=== PATIENT | female | born 1945 | race Two or more races ===

== ENCOUNTER 2017-09-13 09:46 | Inpatient (IN) | payer MEDICARE ==
[~2017-09-13] VITALS: Ht 154.9 cm; Wt 57.3 kg
[2017-09-13] MEDS ORDERED: morphine SULFATE 10 MG/ML, 1ML ONE (09:55)
[2017-09-13] MEDS ORDERED: ONDANSETRON 2MG/ML, 2ML ONE (09:56)
[2017-09-13] MEDS ORDERED: ASPIRIN 325 MG TABLET PO STA (09:58)
[2017-09-13 10:18] LABS: HEMATOCRIT 39.1 % (34.6-47.8); HEMOGLOBIN 13.1 g/dL (11.7-16.4); WHITE BLOOD COUNT 8.4 x10^3/uL (3.4-10)
[2017-09-13] MEDS ORDERED: VERAPAMIL 2.5 MG/ML, 2ML ONE (10:21)
[2017-09-13] MEDS ORDERED: FENTANYL PF 100 MCG/2ML ONE (10:21)
[2017-09-13] MEDS ORDERED: TICAGRELOR 90 MG TABLET ONE (10:21)
[2017-09-13] MEDS ORDERED: MIDAZOLAM 1 MG/ML, 5ML ONE (10:21)
[2017-09-13] MEDS ORDERED: HEPARIN 1,000 UNITS/ML, 10ML ONE (10:22)
[2017-09-13] MEDS ORDERED: LIDOCAINE 2%, 20ML ONE (10:22)
[2017-09-13] MEDS ORDERED: BIVALIRUDIN 250 MG ONE (10:22)
[2017-09-13] MEDS ORDERED: NITROGLYCERIN 5 MG/ML, 10ML ONE (10:22)
[2017-09-13] MEDS ORDERED: ONDANSETRON 2MG/ML, 2ML IVPush ONE (10:30)
[2017-09-13] MEDS ORDERED: MORPHINE SULFATE 4 MG/ML, 1ML IVPush ONE (10:30)
[2017-09-13] MEDS ORDERED: ASPIRIN 81 MG TABLET CHEW PO ONE (10:30)
[2017-09-13] MEDS ORDERED: ASPIRIN 81 MG TABLET CHEW ONE (10:35)
[2017-09-13] MEDS ORDERED: ADENOSINE 6 MG/2 ML ONE (10:57)
[2017-09-13] MEDS ORDERED: EPTIFIBATIDE 20 MG/10 ML ONE (10:57)
[2017-09-13 11:59] LABS: BLOOD UREA NITROGEN 15 mg/dL (7-18)
[2017-09-13] MEDS: EPTIFIBATIDE 100 ML IV SCH (12:23)
[2017-09-13] MEDS ORDERED: ONDANSETRON 2MG/ML, 2ML IVPush PRN ×2 (12:30→18:00)
[2017-09-13] MEDS ORDERED: ZOLPIDEM 5MG TABLET PO PRN (12:30)
[2017-09-13] MEDS ORDERED: ACETAMINOPHEN 325 MG TABLET PO PRN ×2 (12:30→19:30)
[2017-09-13 13:41] LABS: IS PT STATUS REG ER OR PRE ER? NO
[2017-09-13] MEDS: SODIUM CHLORIDE 0.9% 1,000 ML IV SCH ×2 (13:42→18:03)
[2017-09-13] MEDS ORDERED: DOPAMINE/D5W PMX 250 ML ONE (15:08)
[2017-09-13] MEDS ORDERED: ATROPINE SYRINGE 0.1 MG/ML, 10ML IVPush ONE (15:30)
[2017-09-13] MEDS ORDERED: DOPAMINE/D5W PMX 250 ML IV PRN (15:30)
[2017-09-13] MEDS ORDERED: SODIUM CHLORIDE 0.9%, 500ML IVBOLUS ONE (15:30)
[2017-09-13] MEDS ORDERED: TICAGRELOR 90 MG TABLET PO ONE (17:00)
[2017-09-13 20:14] LABS: IS PT STATUS REG ER OR PRE ER? NO
[2017-09-13] MEDS: TICAGRELOR 90 MG TABLET PO SCH (20:46)
[2017-09-13 22:08] VITALS: BP 124/53
[2017-09-14] MEDS: EPTIFIBATIDE 100 ML IV SCH (00:08)
[2017-09-14] MEDS: SODIUM CHLORIDE 0.9% 1,000 ML IV SCH ×2 (01:54→15:58)
[2017-09-14 04:03] VITALS: BP 142/63
[2017-09-14 04:44] LABS: HEMATOCRIT 36.9 % (34.6-47.8); HEMOGLOBIN 12.2 g/dL (11.7-16.4)
[2017-09-14 04:50] LABS: BLOOD UREA NITROGEN 16 mg/dL (7-18)
[2017-09-14] MEDS: DOPAMINE/D5W PMX 250 ML IV PRN (07:08)
[2017-09-14] MEDS: TICAGRELOR 90 MG TABLET PO SCH ×2 (08:56→19:58)
[2017-09-14] MEDS ORDERED: LIDOCAINE 2%, 20ML ONE (08:57)
[2017-09-14] MEDS ORDERED: FENTANYL PF 100 MCG/2ML ONE (09:21)
[2017-09-14] MEDS ORDERED: MIDAZOLAM 1 MG/ML, 5ML ONE (09:21)
[2017-09-14] MEDS ORDERED: LOSA100T6 PO (18:56)
[2017-09-14] MEDS ORDERED: HYDR25TA11 PO (18:56)
[2017-09-14] MEDS ORDERED: ROSU20TA PO (18:56)
[2017-09-14] MEDS ORDERED: CLOT15CR6 TP (18:56)
[2017-09-14] MEDS ORDERED: FURO20TA3 PO (18:56)
[2017-09-14] MEDS ORDERED: ALLO100T30 PO (18:56)
[2017-09-14] MEDS: ATORVASTATIN 80 MG TABLET PO SCH (19:59)
[2017-09-14] MEDS: ZOLPIDEM 5MG TABLET PO PRN (21:43)
[2017-09-14] MEDS ORDERED: ALBUTEROL/IPRATROPIUM 2.5MG/0.5MG, 3 ML ONE (23:54)
[2017-09-15] MEDS ORDERED: ALBUTEROL/IPRATROPIUM 2.5MG/0.5MG, 3 ML NPPB PRN
[2017-09-15] MEDS: SODIUM CHLORIDE 0.9% 1,000 ML IV SCH ×2 (00:06→05:33)
[2017-09-15 04:27] LABS: HEMATOCRIT 35.2 % (34.6-47.8); HEMOGLOBIN 11.6 g/dL (11.7-16.4); WHITE BLOOD COUNT 13.4 x10^3/uL (3.4-10)
[2017-09-15 04:30] VITALS: BP 164/60
[2017-09-15 04:32] LABS: BLOOD UREA NITROGEN 24 mg/dL (7-18)
[2017-09-15 04:36] LABS: ASPARTATE AMINO TRANSFERASE 260 U/L (15-37)
[2017-09-15] MEDS ORDERED: hydrALAzine 20 MG/ML, 1ML IV STA (05:19)
[2017-09-15] MEDS ORDERED: hydrALAzine 20 MG/ML, 1ML ONE (05:24)
[2017-09-15] MEDS: ASPIRIN 81 MG TABLET EC PO SCH (05:32)
[2017-09-15] MEDS: TICAGRELOR 90 MG TABLET PO SCH ×2 (10:41→20:25)
[2017-09-15] MEDS ORDERED: FUROSEMIDE 20 MG/2 ML IV ONE (19:00)
[2017-09-15] MEDS: ATORVASTATIN 80 MG TABLET PO SCH (20:25)
[2017-09-16 04:00] VITALS: BP 159/84
[2017-09-16] MEDS: ASPIRIN 81 MG TABLET EC PO SCH (05:54)
[2017-09-16] MEDS ORDERED: FUROSEMIDE 20 MG/2 ML ONE (09:23)
[2017-09-16] MEDS: TICAGRELOR 90 MG TABLET PO SCH ×2 (09:25→20:27)
[2017-09-16 09:26] LABS: HEMATOCRIT 34.9 % (34.6-47.8); HEMOGLOBIN 11.6 g/dL (11.7-16.4); WHITE BLOOD COUNT 13.7 x10^3/uL (3.4-10)
[2017-09-16] MEDS ORDERED: FUROSEMIDE 20 MG/2 ML IV ONE ×2 (09:30)
[2017-09-16 10:01] LABS: BLOOD UREA NITROGEN 22 mg/dL (7-18)
[2017-09-16] MEDS: ALBUTEROL/IPRATROPIUM 2.5MG/0.5MG, 3 ML NPPB SCH ×3 (10:25→19:50)
[2017-09-16 12:40] LABS: OCCBLD OBC PASS
[2017-09-16] MEDS: ATORVASTATIN 80 MG TABLET PO SCH (20:27)
[2017-09-16] MEDS: ZOLPIDEM 5MG TABLET PO PRN (20:27)
[2017-09-17] MEDS: DOPAMINE/D5W PMX 250 ML IV PRN (02:43)
[2017-09-17] MEDS ORDERED: DOPAMINE/D5W PMX 250 ML IV PRN (03:00)
[2017-09-17 04:00] VITALS: BP 159/78
[2017-09-17 04:34] LABS: HEMATOCRIT 33.6 % (34.6-47.8); HEMOGLOBIN 11.1 g/dL (11.7-16.4); WHITE BLOOD COUNT 12.3 x10^3/uL (3.4-10)
[2017-09-17 04:41] LABS: ASPARTATE AMINO TRANSFERASE 72 U/L (15-37); BLOOD UREA NITROGEN 19 mg/dL (7-18)
[2017-09-17] MEDS: ASPIRIN 81 MG TABLET EC PO SCH (06:18)
[2017-09-17] MEDS: ALBUTEROL/IPRATROPIUM 2.5MG/0.5MG, 3 ML NPPB SCH ×4 (07:25→21:14)
[2017-09-17] MEDS ORDERED: POTASSIUM CHLORIDE 40 MEQ in SODIUM CHLORIDE 0.9% 500 ML IV ONE (08:30)
[2017-09-17] MEDS ORDERED: MAGNESIUM SULFATE PMX 2GM/50ML 50 ML IV ONE (08:30)
[2017-09-17] MEDS ORDERED: POTASSIUM CHLORIDE 20 MEQ TAB.ER.PRT PO ONE (08:30)
[2017-09-17] MEDS ORDERED: MIDAZOLAM 1 MG/ML, 5ML ONE (10:20)
[2017-09-17] MEDS ORDERED: VANCOMYCIN 500 MG ONE (10:20)
[2017-09-17] MEDS ORDERED: FENTANYL PF 100 MCG/2ML ONE (10:20)
[2017-09-17] MEDS ORDERED: LIDOCAINE 2%, 20ML ONE (10:21)
[2017-09-17] MEDS ORDERED: VANCOMYCIN PMX 1GM/200ML 200 ML ONE (10:21)
[2017-09-17] MEDS: PRASUGREL 10 MG TABLET PO SCH (13:43)
[2017-09-17] MEDS: ATORVASTATIN 80 MG TABLET PO SCH (19:53)
[2017-09-17] MEDS: SODIUM CHLORIDE FLUSH 10ML SYR IVF SCH (19:54)
[2017-09-17] MEDS ORDERED: VANCOMYCIN PMX 1GM/200ML 200 ML IVPB ONE (22:30)
[2017-09-18 05:12] VITALS: BP 130/50
[2017-09-18] MEDS: ASPIRIN 81 MG TABLET EC PO SCH (06:35)
[2017-09-18] MEDS: ALBUTEROL/IPRATROPIUM 2.5MG/0.5MG, 3 ML NPPB SCH (07:00)
[2017-09-18] MEDS: SODIUM CHLORIDE FLUSH 10ML SYR IVF SCH ×2 (08:50→21:05)
[2017-09-18] MEDS: PRASUGREL 10 MG TABLET PO SCH (08:50)
[2017-09-18 10:28] LABS: BLOOD UREA NITROGEN 16 mg/dL (7-18)
[2017-09-18 10:36] LABS: HEMATOCRIT 30.1 % (34.6-47.8); HEMOGLOBIN 10.1 g/dL (11.7-16.4); WHITE BLOOD COUNT 8.8 x10^3/uL (3.4-10)
[2017-09-18] MEDS ORDERED: POTASSIUM CHLORIDE 10% 40 MEQ/30 ML UDC PO SCH ×2 (11:30→21:00)
[2017-09-18] MEDS ORDERED: POTASSIUM CHLORIDE 20 MEQ TAB.ER.PRT PO SCH (21:00)
[2017-09-18] MEDS: ATORVASTATIN 80 MG TABLET PO SCH (21:05)
[2017-09-19 04:03] VITALS: BP 145/75
[2017-09-19 04:13] LABS: HEMOGLOBIN 9.3 g/dL (11.7-16.4); WHITE BLOOD COUNT 9.6 x10^3/uL (3.4-10)
[2017-09-19 04:24] LABS: BLOOD UREA NITROGEN 14 mg/dL (7-18)
[2017-09-19] MEDS: ASPIRIN 81 MG TABLET EC PO SCH (06:27)
[2017-09-19] MEDS: PRASUGREL 10 MG TABLET PO SCH (08:23)
[2017-09-19] MEDS: SODIUM CHLORIDE FLUSH 10ML SYR IVF SCH ×2 (09:00→20:46)
[2017-09-19 15:01] VITALS: BP 157/67
[2017-09-19 19:14] VITALS: BP 170/87
[2017-09-19] MEDS: LOSARTAN 50MG TABLET PO SCH (20:46)
[2017-09-19] MEDS: ATORVASTATIN 80 MG TABLET PO SCH (20:46)
[2017-09-20 00:59] VITALS: BP 151/74
[2017-09-20 01:00] VITALS: BP 151/74
[2017-09-20 07:27] VITALS: BP 167/55
[2017-09-20] MEDS: LOSARTAN 50MG TABLET PO SCH (08:23)
[2017-09-20] MEDS: SODIUM CHLORIDE FLUSH 10ML SYR IVF SCH (08:23)
[2017-09-20] MEDS: ASPIRIN 81 MG TABLET EC PO SCH (08:23)
[2017-09-20] MEDS: PRASUGREL 10 MG TABLET PO SCH (08:23)
[2017-09-20] MEDS ORDERED: METOPROLOL TARTRATE 25 MG TABLET PO SCH (09:30)
[2017-09-20] MEDS ORDERED: METO25TA35 PO (09:38)
[2017-09-20] MEDS ORDERED: ASPI-621 PO (09:38)
[2017-09-20] MEDS ORDERED: NITR0.4T28 SL (09:38)
[2017-09-20] MEDS ORDERED: PRAS10TA4 PO (09:38)
[2017-09-27] MEDS ORDERED: POTA20TA14 PO (12:50)
[2017-09-27] MEDS ORDERED: FURO20TA3 PO (12:50)
== END 2017-09-20 13:51 | disposition home or self-care (01) | DRG 242 ==
LOC: ED 10:05 → EDIP 10:06 → ED 11:10 → CCU 11:59 → 5SO 09-19 13:20
PROVIDERS: ADMIT Internal Medicine Cardiovascular Disease; ATTEND Internal Medicine Cardiovascular Disease
PROC: 4A023N7 Measurement of Cardiac Sampling and Pressure, Left Heart, Percutaneous Approach (ICD-10-PCS; principal; 2017-09-13)
PROC: 027036Z Dilation of Coronary Artery, One Artery with Three Drug-eluting Intraluminal Devices, Percutaneous Approach (ICD-10-PCS; 2017-09-13)
PROC: B2111ZZ Fluoroscopy of Multiple Coronary Arteries using Low Osmolar Contrast (ICD-10-PCS; 2017-09-13)
PROC: B2151ZZ Fluoroscopy of Left Heart using Low Osmolar Contrast (ICD-10-PCS; 2017-09-13)
PROC: B41D1ZZ Fluoroscopy of Aorta and Bilateral Lower Extremity Arteries using Low Osmolar Contrast (ICD-10-PCS; 2017-09-13)
PROC: 02703DZ Dilation of Coronary Artery, One Artery with Intraluminal Device, Percutaneous Approach (ICD-10-PCS; 2017-09-13)
PROC: 5A1223Z Performance of Cardiac Pacing, Continuous (ICD-10-PCS; 2017-09-14)
PROC: 4A09XMZ Measurement of Respiratory Total Activity, External Approach (ICD-10-PCS; 2017-09-15)
PROC: 0JH606Z Insertion of Pacemaker, Dual Chamber into Chest Subcutaneous Tissue and Fascia, Open Approach (ICD-10-PCS; 2017-09-17)
PROC: 02PA3MZ Removal of Cardiac Lead from Heart, Percutaneous Approach (ICD-10-PCS; 2017-09-17)
PROC: 02H63JZ Insertion of Pacemaker Lead into Right Atrium, Percutaneous Approach (ICD-10-PCS; 2017-09-17)
PROC: 02HK3JZ Insertion of Pacemaker Lead into Right Ventricle, Percutaneous Approach (ICD-10-PCS; 2017-09-17)
DX: I21.19 ST elevation (STEMI) myocardial infarction involving other coronary artery of inferior wall (principal); R57.0 Cardiogenic shock; J96.00 Acute respiratory failure, unspecified whether with hypoxia or hypercapnia; E44.0 Moderate protein-calorie malnutrition; I11.0 Hypertensive heart disease with heart failure; I27.20 Pulmonary hypertension, unspecified; I48.91 Unspecified atrial fibrillation; D64.9 Anemia, unspecified; E78.5 Hyperlipidemia, unspecified; F17.210 Nicotine dependence, cigarettes, uncomplicated; F41.9 Anxiety disorder, unspecified; G47.33 Obstructive sleep apnea (adult) (pediatric); I25.10 Atherosclerotic heart disease of native coronary artery without angina pectoris; I34.0 Nonrheumatic mitral (valve) insufficiency; I73.9 Peripheral vascular disease, unspecified; Z79.82 Long term (current) use of aspirin; Z95.0 Presence of cardiac pacemaker
CPT/HCPCS: 33208; 33210; 36415; 71010; 80047; 80048; 80053; 80061; 82040; 82272; 83735; 83880; 84484; 85014; 85018; 85025; 85610; 85730; 87081; 92978; 93005; 93306; 93308; 93458; 94060; 94640; 94660; 99156; 99157; C1753; C1769; C1779; C1785; C1892; C1894; J0153; J0461; J0583; J1265; J1644; J2250; J2405; J3010; J3370; J3480; J3490; J7620; C1725; C1874; J0360; J1327; J1940; J3475; J7030; J7040; Q9967

== ENCOUNTER 2018-04-20 05:45 | Inpatient (IN) | payer MEDICARE ==
[~2018-04-20] VITALS: Ht 152.4 cm; Wt 54.1 kg
[~2018-04-20 05:45] MED LIST: ALLO100T30 PO; ASPI-621 PO; CLOT15CR6 TP; FURO20TA3 PO; HYDR25TA11 PO; LOSA100T6 PO; METO25TA35 PO; NITR0.4T28 SL; POTA20TA14 PO; PRAS10TA4 PO; ROSU20TA PO
[2018-04-20 06:44] LABS: MEAN CORPUSCULAR HEMOGLOBIN 31.7 pg (27.0-34.8); MEAN CORPUSCULAR HGB CONC 33.8 g/dL (32.4-35.8); MEAN PLATELET VOLUME 8.8 fL (7.4-10.4); PLATELET COUNT 140 x10^3/uL (130-400); RED BLOOD COUNT 2.09 x10^6/uL (3.82-5.3)
[2018-04-20 06:45] LABS: ALANINE AMINOTRANSFERASE 23 U/L (12-78); ALBUMIN 2.6 g/dL (3.4-5.0); ANION GAP 9 mmol/L (5-15); CHLORIDE 114 mmol/L (98-107); CREATININE 1.25 mg/dL (0.55-1.02)
[2018-04-20 06:49] LABS: ALKALINE PHOSPHATASE 43 U/L (45-117); BILIRUBIN,TOTAL 0.3 mg/dL (0.2-1.0); TOTAL PROTEIN 5.7 g/dL (6.4-8.2); TROPONIN I < 0.015 ng/mL (0.000-0.045)
[2018-04-20 07:08] LABS: BASOPHILS # (AUTO) 0.04 x10^3/uL (0-0.1); BASOPHILS % (AUTO) 1 % (0-1); EOSINOPHILS # (AUTO) 0.21 x10^3/uL (0-0.4); EOSINOPHILS % (AUTO) 3 % (1-7); LYMPHOCYTES % (AUTO) 42 % (22-44); MD SCAN; MONOCYTES # (AUTO) 0.26 x10^3/uL (0.2-0.8); MONOCYTES % (AUTO) 4 % (2-9); NEUTROPHILS % (AUTO) 50 % (42-75)
[2018-04-20 07:17] LABS: INTERNATIONAL NORMALIZED RATIO 0.99 (0.93-1.1); PROTHROMBIN TIME 10.2 Seconds (9.6-11.5)
[2018-04-20] MEDS ORDERED: PANTOPRAZOLE 80 MG in SODIUM CHLORIDE 0.9% 50 ML IVPB ONE (07:23)
[2018-04-20 08:00] VITALS: BP 124/38
[2018-04-20 08:20] VITALS: BP 120/59
[2018-04-20] MEDS: PANTOPRAZOLE 80 MG in SODIUM CHLORIDE 0.9% 100 ML IV SCH ×3 (09:59→21:59)
[2018-04-20] MEDS ORDERED: ALLOPURINOL 100 MG TABLET PO PRN (10:00)
[2018-04-20] MEDS ORDERED: hydrALAzine 20 MG/ML, 1ML IVPush PRN (10:00)
[2018-04-20] MEDS ORDERED: ONDANSETRON 2MG/ML, 2ML IVPush PRN (10:00)
[2018-04-20] MEDS ORDERED: NITROGLYCERIN 0.4 MG BOTTLE (25 TABS) SL PRN (10:00)
[2018-04-20] MEDS ORDERED: ACETAMINOPHEN 325 MG TABLET PO PRN (10:00)
[2018-04-20] MEDS ORDERED: POLYETHYLENE GLYCOL 17 GM PACKET PO PRN (10:00)
[2018-04-20 10:35] VITALS: BP 119/51
[2018-04-20 13:20] VITALS: BP 142/59
[2018-04-20 15:31] VITALS: BP 132/53
[2018-04-20] MEDS: SODIUM CHLORIDE 0.9% 1,000 ML IV SCH ×2 (16:30→22:59)
[2018-04-20] MEDS: METOPROLOL TARTRATE 25 MG TABLET PO SCH (19:28)
[2018-04-20 20:00] VITALS: BP 137/69
[2018-04-21] VITALS (10 sets, daily range): BP systolic 116–158; BP diastolic 51–74
[2018-04-21 06:00] LABS: MEAN CORPUSCULAR HGB CONC 33.7 g/dL (32.4-35.8); MEAN CORPUSCULAR VOLUME 92.1 fL (80-100); RED BLOOD COUNT 2.36 x10^6/uL (3.82-5.3); RED CELL DISTRIBUTION WIDTH 16.1 % (9.6-15.2)
[2018-04-21] MEDS: METOPROLOL TARTRATE 25 MG TABLET PO SCH ×2 (06:00→20:29)
[2018-04-21 06:11] LABS: ALBUMIN 2.4 g/dL (3.4-5.0); ANION GAP 7 mmol/L (5-15); CALCIUM 7.4 mg/dL (8.5-10.1); CHLORIDE 120 mmol/L (98-107)
[2018-04-21 06:16] LABS: ALANINE AMINOTRANSFERASE 18 U/L (12-78); ALKALINE PHOSPHATASE 35 U/L (45-117); BILIRUBIN,TOTAL 0.8 mg/dL (0.2-1.0); CREATININE 0.92 mg/dL (0.55-1.02); TOTAL PROTEIN 4.8 g/dL (6.4-8.2)
[2018-04-21 07:25] LABS: BASOPHILS # (AUTO) 0.05 x10^3/uL (0-0.1); BASOPHILS % (AUTO) 1 % (0-1); EOSINOPHILS # (AUTO) 0.25 x10^3/uL (0-0.4); EOSINOPHILS % (AUTO) 3 % (1-7); LYMPHOCYTES # (AUTO) 4.55 x10^3/uL (1-3.4); LYMPHOCYTES % (AUTO) 50 % (22-44); MD YES; MEAN PLATELET VOLUME 8.9 fL (7.4-10.4); MONOCYTES # (AUTO) 0.52 x10^3/uL (0.2-0.8); MONOCYTES % (AUTO) 6 % (2-9); NEUTROPHILS # (AUTO) 3.78 x10^3/uL (1.8-6.8); NEUTROPHILS % (AUTO) 41 % (42-75); PLATELET COUNT 99 x10^3/uL (130-400)
[2018-04-21 07:31] LABS: EOS#(MANUAL) 0.36 x10^3/uL (0.0-0.4); EOS% (MANUAL) 4 % (1-7); LYMPH#(MANUAL) 4.73 x10^3/uL (1-3.4); LYMPHS% (MANUAL) 52 % (22-44); MONOS#(MANUAL) 0.18 x10^3/uL (0.3-2.7); MONOS% (MANUAL) 2 % (2-9); SEG#(MANUAL) 3.82 x10^3/uL (1.8-6.8); SEGS% (MANUAL) 42 % (42-75)
[2018-04-21 07:32] LABS: <PLATELET ESTIMATE> DECREASED; <PLT MORPHOLOGY> NORMAL PLT MORPH; <RBC MORPHOLOGY> NORMAL
[2018-04-21] MEDS ORDERED: POTASSIUM PHOSPHATE 44 MEQ in SODIUM CHLORIDE 0.9% 500 ML IV ONE (09:30)
[2018-04-21] MEDS: PANTOPRAZOLE 80 MG in SODIUM CHLORIDE 0.9% 100 ML IV SCH ×2 (09:36→22:51)
[2018-04-21] MEDS ORDERED: PROPOFOL 50 ML ONE (13:09)
[2018-04-21] MEDS ORDERED: MIDAZOLAM 1 MG/ML, 2ML ONE (13:18)
[2018-04-21] MEDS ORDERED: OXYcodone 5 MG/5 ML ORAL.SOL UDC PO PRN (14:00)
[2018-04-21] MEDS ORDERED: ACETAMINOPHEN 325 MG TABLET PO PRN (14:00)
[2018-04-21] MEDS ORDERED: LABETALOL 5MG/ML, 20ML IV PRN (14:00)
[2018-04-21] MEDS ORDERED: hydrALAzine 20 MG/ML, 1ML IV PRN (14:00)
[2018-04-21] MEDS ORDERED: EPHEDRINE 50 MG/ML, 1ML IVPush PRN (14:00)
[2018-04-21] MEDS ORDERED: PROMETHAZINE 25 MG/ML, 1ML IV PRN (14:00)
[2018-04-21] MEDS ORDERED: MEPERIDINE/PF 25MG/0.5ML IVPush PRN (14:00)
[2018-04-21] MEDS ORDERED: HYDROcodone/APAP 7.5-325MG/15ML UDC PO PRN (14:00)
[2018-04-21] MEDS ORDERED: MIDAZOLAM 1 MG/ML, 2ML IV PRN (14:00)
[2018-04-21] MEDS ORDERED: ONDANSETRON ODT 8 MG PO PRN (14:00)
[2018-04-21] MEDS ORDERED: ALBUTEROL/IPRATROPIUM 2.5MG/0.5MG, 3 ML NPPB PRN (14:00)
[2018-04-21] MEDS ORDERED: ALBUTEROL SULFATE 2.5 MG/3 ML NPPB PRN (14:00)
[2018-04-21] MEDS ORDERED: FENTANYL PF 100 MCG/2ML IV PRN (14:00)
[2018-04-21] MEDS: DEXTROSE 5% 1,000 ML IV SCH (22:50)
[2018-04-22 01:44] LABS: MICROSCOPIC AUTO
[2018-04-22 01:46] LABS: CULTURE INDICATED? YES
[2018-04-22] MEDS: DEXTROSE 5% 1,000 ML IV SCH (02:11)
[2018-04-22 02:32] VITALS: BP 161/66
[2018-04-22 05:35] LABS: ALBUMIN 2.4 g/dL (3.4-5.0); ANION GAP 6 mmol/L (5-15); CALCIUM 7.5 mg/dL (8.5-10.1); CHLORIDE 119 mmol/L (98-107)
[2018-04-22 05:38] LABS: CREATININE 0.85 mg/dL (0.55-1.02); MEAN CORPUSCULAR HEMOGLOBIN 30.8 pg (27.0-34.8); MEAN CORPUSCULAR HGB CONC 34.1 g/dL (32.4-35.8); MEAN CORPUSCULAR VOLUME 90.3 fL (80-100); RED BLOOD COUNT 3.08 x10^6/uL (3.82-5.3); RED CELL DISTRIBUTION WIDTH 15.4 % (9.6-15.2)
[2018-04-22] MEDS: METOPROLOL TARTRATE 25 MG TABLET PO SCH (06:09)
[2018-04-22 06:30] LABS: BASOPHILS # (AUTO) 0.04 x10^3/uL (0-0.1); BASOPHILS % (AUTO) 1 % (0-1); EOSINOPHILS # (AUTO) 0.23 x10^3/uL (0-0.4); EOSINOPHILS % (AUTO) 3 % (1-7); LYMPHOCYTES # (AUTO) 2.52 x10^3/uL (1-3.4); LYMPHOCYTES % (AUTO) 37 % (22-44); MD SCAN; MEAN PLATELET VOLUME 8.8 fL (7.4-10.4); MONOCYTES # (AUTO) 0.39 x10^3/uL (0.2-0.8); MONOCYTES % (AUTO) 6 % (2-9); NEUTROPHILS # (AUTO) 3.61 x10^3/uL (1.8-6.8); NEUTROPHILS % (AUTO) 53 % (42-75); PLATELET COUNT 88 x10^3/uL (130-400)
[2018-04-22 06:31] VITALS: BP 161/74
[2018-04-22] MEDS ORDERED: PANT40TA5 PO (08:26)
[2018-04-22] MEDS ORDERED: PANTOPROZOLE 40MG TABLET PO SCH (08:30)
[2018-04-22 13:30] VITALS: BP 153/72
== END 2018-04-22 16:09 | disposition home or self-care (01) | DRG 377 ==
LOC: ED 08:14 → SUATTDRO 09:38 → EDIP 09:39 → 4WST 15:18 → DCLOUNGE 04-22 16:00
PROVIDERS: ADMIT Hospitalist; ATTEND Hospitalist
PROC: 30233N1 Transfusion of Nonautologous Red Blood Cells into Peripheral Vein, Percutaneous Approach (ICD-10-PCS; 2018-04-20)
PROC: 0W3P8ZZ Control Bleeding in Gastrointestinal Tract, Via Natural or Artificial Opening Endoscopic (ICD-10-PCS; 2018-04-21)
PROC: 0DB98ZX Excision of Duodenum, Via Natural or Artificial Opening Endoscopic, Diagnostic (ICD-10-PCS; principal; 2018-04-21 13:45)
DX: K92.2 Gastrointestinal hemorrhage, unspecified (principal); E43 Unspecified severe protein-calorie malnutrition; D62 Acute posthemorrhagic anemia; D68.9 Coagulation defect, unspecified; N17.9 Acute kidney failure, unspecified; N28.9 Disorder of kidney and ureter, unspecified; I25.10 Atherosclerotic heart disease of native coronary artery without angina pectoris; K31.819 Angiodysplasia of stomach and duodenum without bleeding; K31.7 Polyp of stomach and duodenum; F17.200 Nicotine dependence, unspecified, uncomplicated; E78.5 Hyperlipidemia, unspecified; I11.0 Hypertensive heart disease with heart failure; I34.0 Nonrheumatic mitral (valve) insufficiency; I50.9 Heart failure, unspecified; Z95.5 Presence of coronary angioplasty implant and graft; I25.2 Old myocardial infarction; Z95.0 Presence of cardiac pacemaker; Z79.82 Long term (current) use of aspirin; Z68.23 Body mass index [BMI] 23.0-23.9, adult; Z90.49 Acquired absence of other specified parts of digestive tract; Z88.0 Allergy status to penicillin
CPT/HCPCS: 36415; 36430; 71045; 80048; 80053; 81001; 82040; 83690; 83735; 83880; 84100; 84484; 85014; 85018; 85025; 85610; 85730; 86850; 86900; 86923; 87086; 88305; 88342; 93005; 93306; 99291; J2250; J2704; J7070; C9113; G0461; J7030; J7040; P9016

== ENCOUNTER 2018-04-27 16:30 | Inpatient (IN) | payer MEDICARE ==
[2018-04-27] VITALS (9 sets, daily range): BP systolic 109–142; BP diastolic 43–67
[~2018-04-27] VITALS: Ht 154.9 cm; Wt 57.1 kg
[~2018-04-27 16:30] MED LIST changes: +PANT40TA5 PO
[2018-04-27] MEDS ORDERED: ONDANSETRON 2MG/ML, 2ML IVPush ONE (17:00)
[2018-04-27 17:24] LABS: INTERNATIONAL NORMALIZED RATIO 1.04 (0.93-1.1); PROTHROMBIN TIME 10.7 Seconds (9.6-11.5)
[2018-04-27 17:27] LABS: ALANINE AMINOTRANSFERASE 15 U/L (12-78); ALBUMIN 2.1 g/dL (3.4-5.0); ANION GAP 7 mmol/L (5-15); CALCIUM 7.4 mg/dL (8.5-10.1); CHLORIDE 118 mmol/L (98-107); CREATININE 0.91 mg/dL (0.55-1.02)
[2018-04-27 17:31] LABS: ALKALINE PHOSPHATASE 33 U/L (45-117); BILIRUBIN,TOTAL 0.3 mg/dL (0.2-1.0); TOTAL PROTEIN 4.5 g/dL (6.4-8.2); TROPONIN I < 0.015 ng/mL (0.000-0.045)
[2018-04-27 17:39] LABS: <PLATELET ESTIMATE> DECREASED; <PLT MORPHOLOGY> NORMAL PLT MORPH; ANISOCYTOSIS 1+; BASOPHILS # (AUTO) 0.02 x10^3/uL (0-0.1); BASOPHILS % (AUTO) 0 % (0-1); EOSINOPHILS # (AUTO) 0.06 x10^3/uL (0-0.4); EOSINOPHILS % (AUTO) 1 % (1-7); LYMPHOCYTES # (AUTO) 1.04 x10^3/uL (1-3.4); LYMPHOCYTES % (AUTO) 12 % (22-44); MD MORPH REVIEW ONLY; MEAN CORPUSCULAR HEMOGLOBIN 31.2 pg (27.0-34.8); MEAN CORPUSCULAR HGB CONC 33.5 g/dL (32.4-35.8); MEAN CORPUSCULAR VOLUME 93.1 fL (80-100); MEAN PLATELET VOLUME 8.8 fL (7.4-10.4); MONOCYTES # (AUTO) 0.37 x10^3/uL (0.2-0.8); MONOCYTES % (AUTO) 4 % (2-9); NEUTROPHILS # (AUTO) 7.19 x10^3/uL (1.8-6.8); NEUTROPHILS % (AUTO) 83 % (42-75); PLATELET COUNT 124 x10^3/uL (130-400); POLYCHROMASIA 1+; RED BLOOD COUNT 1.95 x10^6/uL (3.82-5.3); RED CELL DISTRIBUTION WIDTH 16.8 % (9.6-15.2)
[2018-04-27] MEDS ORDERED: ROSU20TA PO (18:45)
[2018-04-27] MEDS ORDERED: CIPR500T87 PO (18:49)
[2018-04-27] MEDS ORDERED: hydrALAzine 20 MG/ML, 1ML IVPush PRN (19:30)
[2018-04-27] MEDS ORDERED: PANTOPRAZOLE 80 MG in SODIUM CHLORIDE 0.9% 50 ML IV ONE (19:30)
[2018-04-27] MEDS ORDERED: ONDANSETRON 2MG/ML, 2ML IVPush PRN (19:30)
[2018-04-27 19:59] LABS: TROPONIN I < 0.015 ng/mL (0.000-0.045)
[2018-04-27] MEDS: ATORVASTATIN 40 MG TABLET PO SCH (21:00)
[2018-04-27] MEDS: SODIUM CHLORIDE 0.9% 1,000 ML IV SCH (22:48)
[2018-04-27] MEDS: PANTOPRAZOLE 80 MG in SODIUM CHLORIDE 0.9% 100 ML IV SCH (23:11)
[2018-04-28] VITALS (13 sets, daily range): BP systolic 101–155; BP diastolic 56–79
[2018-04-28 01:21] LABS: TROPONIN I < 0.015 ng/mL (0.000-0.045)
[2018-04-28 05:38] LABS: BASOPHILS # (AUTO) 0.03 x10^3/uL (0-0.1); BASOPHILS % (AUTO) 1 % (0-1); EOSINOPHILS # (AUTO) 0.13 x10^3/uL (0-0.4); EOSINOPHILS % (AUTO) 2 % (1-7); LYMPHOCYTES # (AUTO) 1.94 x10^3/uL (1-3.4); LYMPHOCYTES % (AUTO) 31 % (22-44); MD NO; MEAN CORPUSCULAR HEMOGLOBIN 30.9 pg (27.0-34.8); MEAN CORPUSCULAR HGB CONC 33.4 g/dL (32.4-35.8); MEAN CORPUSCULAR VOLUME 92.4 fL (80-100); MEAN PLATELET VOLUME 8.7 fL (7.4-10.4); MONOCYTES # (AUTO) 0.32 x10^3/uL (0.2-0.8); MONOCYTES % (AUTO) 5 % (2-9); NEUTROPHILS # (AUTO) 3.79 x10^3/uL (1.8-6.8); NEUTROPHILS % (AUTO) 61 % (42-75); PLATELET COUNT 104 x10^3/uL (130-400); RED BLOOD COUNT 2.36 x10^6/uL (3.82-5.3); RED CELL DISTRIBUTION WIDTH 16.2 % (9.6-15.2)
[2018-04-28 05:45] LABS: ALBUMIN 1.9 g/dL (3.4-5.0); ANION GAP 6 mmol/L (5-15); CALCIUM 7.1 mg/dL (8.5-10.1); CHLORIDE 119 mmol/L (98-107)
[2018-04-28] MEDS: METOPROLOL TARTRATE 25 MG TABLET PO SCH ×2 (05:49→18:51)
[2018-04-28 05:50] LABS: ALANINE AMINOTRANSFERASE 12 U/L (12-78); ALKALINE PHOSPHATASE 28 U/L (45-117); BILIRUBIN,TOTAL 0.8 mg/dL (0.2-1.0); CREATININE 0.78 mg/dL (0.55-1.02); TOTAL PROTEIN 3.9 g/dL (6.4-8.2)
[2018-04-28] MEDS: SODIUM CHLORIDE 0.9% 1,000 ML IV SCH (08:32)
[2018-04-28] MEDS: LOSARTAN 50MG TABLET PO SCH (09:00)
[2018-04-28] MEDS: PANTOPRAZOLE 80 MG in SODIUM CHLORIDE 0.9% 100 ML IV SCH (09:17)
[2018-04-28] MEDS ORDERED: PROPOFOL 10 MG/ML, 20ML ONE (13:57)
[2018-04-28] MEDS ORDERED: EPHEDRINE 50 MG/ML, 1ML IVPush PRN (14:30)
[2018-04-28] MEDS ORDERED: MIDAZOLAM 1 MG/ML, 2ML IV PRN (14:30)
[2018-04-28] MEDS ORDERED: ONDANSETRON ODT 8 MG PO PRN (14:30)
[2018-04-28] MEDS ORDERED: FENTANYL PF 100 MCG/2ML IV PRN (14:30)
[2018-04-28] MEDS ORDERED: LABETALOL 5MG/ML, 20ML IV PRN (14:30)
[2018-04-28] MEDS ORDERED: GOLYTELY 4,000ML ORAL.SOL PO ONE (17:00)
[2018-04-28] MEDS: ATORVASTATIN 40 MG TABLET PO SCH (20:09)
[2018-04-28] MEDS: ACETAMINOPHEN 325 MG TABLET PO PRN (21:33)
[2018-04-29 02:51] VITALS: BP 116/52
[2018-04-29 03:29] LABS: ANION GAP 9 mmol/L (5-15); CALCIUM 7.6 mg/dL (8.5-10.1); CHLORIDE 118 mmol/L (98-107); CREATININE 0.78 mg/dL (0.55-1.02)
[2018-04-29 03:31] LABS: MEAN CORPUSCULAR HEMOGLOBIN 30.9 pg (27.0-34.8); MEAN CORPUSCULAR HGB CONC 33.6 g/dL (32.4-35.8); MEAN CORPUSCULAR VOLUME 91.9 fL (80-100); MEAN PLATELET VOLUME 8.8 fL (7.4-10.4); PLATELET COUNT 92 x10^3/uL (130-400); RED BLOOD COUNT 2.76 x10^6/uL (3.82-5.3); RED CELL DISTRIBUTION WIDTH 15.5 % (9.6-15.2)
[2018-04-29 03:45] LABS: BASOPHILS # (AUTO) 0.03 x10^3/uL (0-0.1); BASOPHILS % (AUTO) 0 % (0-1); EOSINOPHILS # (AUTO) 0.18 x10^3/uL (0-0.4); EOSINOPHILS % (AUTO) 2 % (1-7); LYMPHOCYTES # (AUTO) 2.67 x10^3/uL (1-3.4); LYMPHOCYTES % (AUTO) 31 % (22-44); MD SCAN; MONOCYTES # (AUTO) 0.38 x10^3/uL (0.2-0.8); MONOCYTES % (AUTO) 4 % (2-9); NEUTROPHILS # (AUTO) 5.46 x10^3/uL (1.8-6.8); NEUTROPHILS % (AUTO) 63 % (42-75)
[2018-04-29] MEDS: METOPROLOL TARTRATE 25 MG TABLET PO SCH ×2 (06:00→17:55)
[2018-04-29 07:40] VITALS: BP 146/64
[2018-04-29 08:35] VITALS: BP 126/55
[2018-04-29] MEDS: LOSARTAN 50MG TABLET PO SCH (08:37)
[2018-04-29] MEDS ORDERED: PANTOPRAZOLE 40 MG IV IVPush SCH (09:00)
[2018-04-29] MEDS ORDERED: PROPOFOL 10 MG/ML, 20ML ONE (11:05)
[2018-04-29] MEDS ORDERED: MIDAZOLAM 1 MG/ML, 2ML IV PRN (12:00)
[2018-04-29] MEDS ORDERED: FENTANYL PF 100 MCG/2ML IV PRN (12:00)
[2018-04-29] MEDS ORDERED: PROMETHAZINE 12.5 MG SUPP PR PRN (12:00)
[2018-04-29] MEDS ORDERED: MEPERIDINE/PF 25MG/0.5ML IVPush PRN (12:00)
[2018-04-29] MEDS ORDERED: ONDANSETRON ODT 8 MG PO PRN (12:00)
[2018-04-29] MEDS ORDERED: PROMETHAZINE 25 MG/ML, 1ML IV PRN (12:00)
[2018-04-29] MEDS ORDERED: hydrALAzine 20 MG/ML, 1ML IV PRN (12:00)
[2018-04-29] MEDS ORDERED: MORPHINE SULFATE 4 MG/ML, 1ML IVPush PRN (12:00)
[2018-04-29] MEDS ORDERED: ALBUTEROL SULFATE 2.5 MG/3 ML NPPB PRN (12:00)
[2018-04-29] MEDS ORDERED: LABETALOL 5MG/ML, 20ML IV PRN (12:00)
[2018-04-29] MEDS ORDERED: OXYcodone 5 MG/5 ML ORAL.SOL UDC PO PRN (12:00)
[2018-04-29 12:30] VITALS: BP 165/64
[2018-04-29 13:15] VITALS: BP 161/65
[2018-04-29] MEDS: ACETAMINOPHEN 325 MG TABLET PO PRN (17:55)
[2018-04-29] MEDS: ATORVASTATIN 40 MG TABLET PO SCH (20:21)
[2018-04-29 21:50] VITALS: BP 101/54
[2018-04-30 02:43] VITALS: BP 125/55
[2018-04-30 05:33] VITALS: BP 162/63
[2018-04-30] MEDS: METOPROLOL TARTRATE 25 MG TABLET PO SCH (05:34)
[2018-04-30 05:56] LABS: ANION GAP 4 mmol/L (5-15); CALCIUM 7.6 mg/dL (8.5-10.1); CHLORIDE 118 mmol/L (98-107)
[2018-04-30 05:57] LABS: CREATININE 0.88 mg/dL (0.55-1.02)
[2018-04-30 05:59] LABS: BASOPHILS # (AUTO) 0.03 x10^3/uL (0-0.1); BASOPHILS % (AUTO) 0 % (0-1); EOSINOPHILS # (AUTO) 0.18 x10^3/uL (0-0.4); EOSINOPHILS % (AUTO) 2 % (1-7); LYMPHOCYTES # (AUTO) 2.27 x10^3/uL (1-3.4); LYMPHOCYTES % (AUTO) 27 % (22-44); MD NO; MEAN CORPUSCULAR HEMOGLOBIN 31.2 pg (27.0-34.8); MEAN CORPUSCULAR HGB CONC 33.2 g/dL (32.4-35.8); MEAN CORPUSCULAR VOLUME 93.9 fL (80-100); MEAN PLATELET VOLUME 8.9 fL (7.4-10.4); MONOCYTES # (AUTO) 0.47 x10^3/uL (0.2-0.8); MONOCYTES % (AUTO) 6 % (2-9); NEUTROPHILS # (AUTO) 5.42 x10^3/uL (1.8-6.8); NEUTROPHILS % (AUTO) 65 % (42-75); PLATELET COUNT 117 x10^3/uL (130-400); RED BLOOD COUNT 2.48 x10^6/uL (3.82-5.3); RED CELL DISTRIBUTION WIDTH 15.3 % (9.6-15.2)
[2018-04-30] MEDS ORDERED: ASPIRIN 81 MG TABLET EC PO SCH (06:00)
[2018-04-30] MEDS ORDERED: OMEPRAZOLE 20 MG CAPSULE.DR PO SCH (07:30)
[2018-04-30 08:00] VITALS: BP 151/68
[2018-04-30 08:48] VITALS: BP 146/67
[2018-04-30] MEDS: LOSARTAN 50MG TABLET PO SCH (08:53)
[2018-04-30] MEDS: CLOPIDOGREL 75 MG TABLET PO SCH ×2 (08:53→12:44)
[2018-04-30] MEDS ORDERED: PRASUGREL 10 MG TABLET PO SCH (09:00)
[2018-04-30] MEDS ORDERED: CLOP75TA PO (12:41)
[2018-04-30 15:08] VITALS: BP 159/79
== END 2018-04-30 15:20 | disposition home or self-care (01) | DRG 377 ==
LOC: ED 18:08 → EDIP 18:12 → 4WST 19:58 → DCLOUNGE 04-30 15:12
PROVIDERS: ADMIT Hospitalist; ATTEND Hospitalist
PROC: 0DJ08ZZ Inspection of Upper Intestinal Tract, Via Natural or Artificial Opening Endoscopic (ICD-10-PCS; 2018-04-28)
PROC: 0W3P8ZZ Control Bleeding in Gastrointestinal Tract, Via Natural or Artificial Opening Endoscopic (ICD-10-PCS; 2018-04-28)
PROC: 30233N1 Transfusion of Nonautologous Red Blood Cells into Peripheral Vein, Percutaneous Approach (ICD-10-PCS; principal; 2018-04-28 15:00)
PROC: 0DBK8ZZ Excision of Ascending Colon, Via Natural or Artificial Opening Endoscopic (ICD-10-PCS; 2018-04-29)
PROC: 0DBN8ZZ Excision of Sigmoid Colon, Via Natural or Artificial Opening Endoscopic (ICD-10-PCS; 2018-04-29)
DX: K92.1 Melena (principal); E43 Unspecified severe protein-calorie malnutrition; E87.0 Hyperosmolality and hypernatremia; D62 Acute posthemorrhagic anemia; F17.210 Nicotine dependence, cigarettes, uncomplicated; I25.10 Atherosclerotic heart disease of native coronary artery without angina pectoris; D69.6 Thrombocytopenia, unspecified; K63.5 Polyp of colon; K55.20 Angiodysplasia of colon without hemorrhage; K29.00 Acute gastritis without bleeding; E78.5 Hyperlipidemia, unspecified; I11.0 Hypertensive heart disease with heart failure; I50.9 Heart failure, unspecified; K31.819 Angiodysplasia of stomach and duodenum without bleeding; K22.2 Esophageal obstruction; K57.30 Diverticulosis of large intestine without perforation or abscess without bleeding; K64.8 Other hemorrhoids; F41.9 Anxiety disorder, unspecified; I25.2 Old myocardial infarction; Z90.49 Acquired absence of other specified parts of digestive tract; Z68.23 Body mass index [BMI] 23.0-23.9, adult; Z82.49 Family history of ischemic heart disease and other diseases of the circulatory system; Z79.82 Long term (current) use of aspirin; Z95.5 Presence of coronary angioplasty implant and graft; Z95.0 Presence of cardiac pacemaker; Z79.899 Other long term (current) drug therapy
CPT/HCPCS: 36415; 36430; 80048; 80053; 84484; 85014; 85018; 85025; 85610; 86850; 86900; 86923; 88305; 93005; 99291; J2704; C9113; J7030; P9016

== ENCOUNTER 2018-05-03 17:31 | Inpatient (IN) | payer MEDICARE ==
[~2018-05-03] VITALS: Ht 149.9 cm; Wt 53.4 kg
[~2018-05-03 17:31] MED LIST changes: +CIPR500T87 PO; +CLOP75TA PO
[2018-05-03] MEDS ORDERED: ASPIRIN 81 MG TABLET CHEW ONE (18:10)
[2018-05-03] MEDS ORDERED: SODIUM CHLORIDE FLUSH 10ML SYR IVF ONE (18:30)
[2018-05-03] MEDS ORDERED: ASPIRIN 81 MG TABLET CHEW PO ONE (18:30)
[2018-05-03 18:44] LABS: ALBUMIN 2.3 g/dL (3.4-5.0); ANION GAP 7 mmol/L (5-15); CALCIUM 7.9 mg/dL (8.5-10.1); CHLORIDE 115 mmol/L (98-107)
[2018-05-03 18:49] LABS: ALANINE AMINOTRANSFERASE 23 U/L (12-78); ALKALINE PHOSPHATASE 35 U/L (45-117); BILIRUBIN,TOTAL 0.5 mg/dL (0.2-1.0); CREATININE 1.08 mg/dL (0.55-1.02); TOTAL PROTEIN 4.9 g/dL (6.4-8.2); TROPONIN I 0.019 ng/mL (0.000-0.045)
[2018-05-03 19:06] LABS: MEAN CORPUSCULAR HGB CONC 33.7 g/dL (32.4-35.8); MEAN CORPUSCULAR VOLUME 95.1 fL (80-100); MEAN PLATELET VOLUME 8.6 fL (7.4-10.4); PLATELET COUNT 171 x10^3/uL (130-400); RED BLOOD COUNT 1.76 x10^6/uL (3.82-5.3)
[2018-05-03 19:10] LABS: MD YES
[2018-05-03 19:17] LABS: BAND#(MANUAL) 0.22 x10^3/uL; BANDS%(MANUAL) 4 % (0-7); EOS#(MANUAL) 0.17 x10^3/uL (0.0-0.4); EOS% (MANUAL) 3 % (1-7); LYMPH#(MANUAL) 0.77 x10^3/uL (1-3.4); LYMPHS% (MANUAL) 14 % (22-44); METAMYELOCYTES# (MANUAL) 0.17 x10^3/uL (0-0); METAMYELOCYTES% (MANUAL) 3 % (0-1); MONOS#(MANUAL) 0.22 x10^3/uL (0.3-2.7); MONOS% (MANUAL) 4 % (2-9); NRBC % (MANUAL) 2 % (0-1); SEG#(MANUAL) 3.96 x10^3/uL (1.8-6.8); SEGS% (MANUAL) 72 % (42-75)
[2018-05-03 19:18] LABS: ANISOCYTOSIS 1+
[2018-05-03 19:20] LABS: HYPOCHROMIA 1+; OVALOCYTES 1+
[2018-05-03 19:22] LABS: <PLATELET ESTIMATE> ADEQUATE; <PLT MORPHOLOGY> NORMAL PLT MORPH
[2018-05-03] MEDS ORDERED: NITROGLYCERIN 0.4 MG BOTTLE (25 TABS) SL PRN (19:30)
[2018-05-03] MEDS ORDERED: hydrALAzine 20 MG/ML, 1ML IVPush PRN (19:30)
[2018-05-03] MEDS ORDERED: ACETAMINOPHEN 325 MG TABLET PO PRN (19:30)
[2018-05-03] MEDS ORDERED: ONDANSETRON 2MG/ML, 2ML IVPush PRN (19:30)
[2018-05-03] MEDS: NS + 20MEQ KCL 1,000 ML IV SCH (19:30)
[2018-05-03] MEDS ORDERED: PRAS10TA4 PO (19:51)
[2018-05-03 19:58] LABS: PROTHROMBIN TIME 10.4 Seconds (9.6-11.5)
[2018-05-03] MEDS ORDERED: PANTOPRAZOLE 80 MG in SODIUM CHLORIDE 0.9% 50 ML IV ONE (20:00)
[2018-05-03] MEDS: ATORVASTATIN 40 MG TABLET PO SCH (21:00)
[2018-05-03 21:22] VITALS: BP 139/67
[2018-05-03 21:47] VITALS: BP 121/55
[2018-05-03] MEDS ORDERED: OMNIPAQUE 350 MG/ML, 100ML BOTTLE ONE (22:14)
[2018-05-03 22:22] VITALS: BP 121/68
[2018-05-03] MEDS: PANTOPRAZOLE 80 MG in SODIUM CHLORIDE 0.9% 100 ML IV SCH (22:29)
[2018-05-03 23:29] VITALS: BP 145/68
[2018-05-04] VITALS (15 sets, daily range): BP systolic 119–193; BP diastolic 61–75
[2018-05-04 03:13] LABS: TROPONIN I 0.024 ng/mL (0.000-0.045)
[2018-05-04] MEDS: METOPROLOL TARTRATE 25 MG TABLET PO SCH ×2 (06:00→12:16)
[2018-05-04] MEDS: ASPIRIN 81 MG TABLET EC PO SCH (06:00)
[2018-05-04 09:45] LABS: TROPONIN I 0.019 ng/mL (0.000-0.045)
[2018-05-04] MEDS: NS + 20MEQ KCL 1,000 ML IV SCH (10:01)
[2018-05-04] MEDS: PANTOPRAZOLE 80 MG in SODIUM CHLORIDE 0.9% 100 ML IV SCH ×2 (10:02→18:23)
[2018-05-04] MEDS: LOSARTAN 50MG TABLET PO SCH (10:04)
[2018-05-04] MEDS: CLOPIDOGREL 75 MG TABLET PO SCH (10:04)
[2018-05-04] MEDS: ATORVASTATIN 40 MG TABLET PO SCH (20:02)
[2018-05-05] VITALS (7 sets, daily range): BP systolic 157–195; BP diastolic 66–83
[2018-05-05 04:44] LABS: BASOPHILS # (AUTO) 0.04 x10^3/uL (0-0.1); BASOPHILS % (AUTO) 1 % (0-1); EOSINOPHILS # (AUTO) 0.21 x10^3/uL (0-0.4); EOSINOPHILS % (AUTO) 3 % (1-7); LYMPHOCYTES # (AUTO) 1.45 x10^3/uL (1-3.4); LYMPHOCYTES % (AUTO) 24 % (22-44); MD NO; MEAN CORPUSCULAR HEMOGLOBIN 29.8 pg (27.0-34.8); MEAN CORPUSCULAR HGB CONC 33.4 g/dL (32.4-35.8); MEAN CORPUSCULAR VOLUME 89.3 fL (80-100); MEAN PLATELET VOLUME 8.4 fL (7.4-10.4); MONOCYTES # (AUTO) 0.39 x10^3/uL (0.2-0.8); MONOCYTES % (AUTO) 7 % (2-9); NEUTROPHILS # (AUTO) 4.01 x10^3/uL (1.8-6.8); NEUTROPHILS % (AUTO) 66 % (42-75); PLATELET COUNT 143 x10^3/uL (130-400); RED BLOOD COUNT 3.33 x10^6/uL (3.82-5.3); RED CELL DISTRIBUTION WIDTH 16.1 % (9.6-15.2)
[2018-05-05 04:51] LABS: ANION GAP 6 mmol/L (5-15); CALCIUM 7.9 mg/dL (8.5-10.1); CHLORIDE 119 mmol/L (98-107)
[2018-05-05] MEDS: PANTOPRAZOLE 80 MG in SODIUM CHLORIDE 0.9% 100 ML IV SCH (05:04)
[2018-05-05] MEDS: METOPROLOL TARTRATE 25 MG TABLET PO SCH ×2 (05:30→17:57)
[2018-05-05] MEDS: ASPIRIN 81 MG TABLET EC PO SCH (05:30)
[2018-05-05] MEDS: LOSARTAN 50MG TABLET PO SCH (08:21)
[2018-05-05] MEDS: CLOPIDOGREL 75 MG TABLET PO SCH (08:21)
[2018-05-05] MEDS ORDERED: PANTOPROZOLE 40MG TABLET PO SCH (09:30)
[2018-05-06] MEDS ORDERED: PANTOPROZOLE 40MG TABLET PO SCH (07:30)
== END 2018-05-05 18:31 | disposition home or self-care (01) | DRG 682 ==
LOC: ED 18:00 → EDIP 19:26 → 5SO 20:14
PROVIDERS: ADMIT Internal Medicine; ATTEND Internal Medicine
PROC: 30233N1 Transfusion of Nonautologous Red Blood Cells into Peripheral Vein, Percutaneous Approach (ICD-10-PCS; principal; 2018-05-03)
DX: N17.0 Acute kidney failure with tubular necrosis (principal); E43 Unspecified severe protein-calorie malnutrition; D62 Acute posthemorrhagic anemia; E87.0 Hyperosmolality and hypernatremia; I25.10 Atherosclerotic heart disease of native coronary artery without angina pectoris; Z95.5 Presence of coronary angioplasty implant and graft; E78.5 Hyperlipidemia, unspecified; F17.210 Nicotine dependence, cigarettes, uncomplicated; F41.9 Anxiety disorder, unspecified; I11.0 Hypertensive heart disease with heart failure; I25.2 Old myocardial infarction; I50.9 Heart failure, unspecified; Z82.49 Family history of ischemic heart disease and other diseases of the circulatory system; Z95.0 Presence of cardiac pacemaker; R73.9 Hyperglycemia, unspecified; Z68.23 Body mass index [BMI] 23.0-23.9, adult
CPT/HCPCS: 36415; 71045; 71275; 78278; 80048; 80053; 82728; 83540; 83550; 84484; 85014; 85018; 85025; 85379; 85610; 86850; 86900; 86923; 93005; J3480; Q9967; A9560; C9113; C9898; P9016

== ENCOUNTER 2018-05-15 14:32 | Inpatient (IN) | payer MEDICARE ==
[~2018-05-15] VITALS: Ht 149.9 cm; Wt 53.8 kg
[2018-05-15] VITALS (9 sets, daily range): BP systolic 145–168; BP diastolic 54–74
[~2018-05-15 14:32] MED LIST changes: +CLOP75TA52 PO
[2018-05-15 16:16] LABS: MEAN CORPUSCULAR HEMOGLOBIN 29.8 pg (27.0-34.8); MEAN CORPUSCULAR HGB CONC 32.4 g/dL (32.4-35.8); MEAN PLATELET VOLUME 8.2 fL (7.4-10.4); PLATELET COUNT 241 x10^3/uL (130-400); RED BLOOD COUNT 2.37 x10^6/uL (3.82-5.3)
[2018-05-15 16:19] LABS: INTERNATIONAL NORMALIZED RATIO 0.94 (0.93-1.1); PROTHROMBIN TIME 9.8 Seconds (9.6-11.5)
[2018-05-15 16:22] LABS: BASOPHILS # (AUTO) 0.04 x10^3/uL (0-0.1); BASOPHILS % (AUTO) 1 % (0-1); EOSINOPHILS # (AUTO) 0.15 x10^3/uL (0-0.4); EOSINOPHILS % (AUTO) 3 % (1-7); LYMPHOCYTES # (AUTO) 2.11 x10^3/uL (1-3.4); LYMPHOCYTES % (AUTO) 35 % (22-44); MD SCAN; MONOCYTES # (AUTO) 0.37 x10^3/uL (0.2-0.8); MONOCYTES % (AUTO) 6 % (2-9); NEUTROPHILS # (AUTO) 3.38 x10^3/uL (1.8-6.8); NEUTROPHILS % (AUTO) 56 % (42-75)
[2018-05-15 16:23] LABS: ALANINE AMINOTRANSFERASE 20 U/L (12-78); ALBUMIN 2.7 g/dL (3.4-5.0); ANION GAP 4 mmol/L (5-15); CALCIUM 8.4 mg/dL (8.5-10.1); CHLORIDE 119 mmol/L (98-107); CREATININE 1.01 mg/dL (0.55-1.02)
[2018-05-15 16:25] LABS: ALKALINE PHOSPHATASE 44 U/L (45-117); BILIRUBIN,TOTAL 0.4 mg/dL (0.2-1.0); TOTAL PROTEIN 5.6 g/dL (6.4-8.2)
[2018-05-15 16:41] LABS: CULTURE INDICATED? YES; MICROSCOPIC INDICATED
[2018-05-15] MEDS ORDERED: SODIUM CHLORIDE FLUSH 10ML SYR IVF ONE (17:30)
[2018-05-15] MEDS ORDERED: PROMETHAZINE 25 MG/ML, 1ML IM PRN (18:30)
[2018-05-15] MEDS ORDERED: ONDANSETRON ODT 4 MG PO PRN (18:30)
[2018-05-15] MEDS ORDERED: NITROGLYCERIN 0.4 MG BOTTLE (25 TABS) SL PRN (19:00)
[2018-05-15] MEDS ORDERED: CEFTRIAXONE PMX 1GM/50ML 50 ML IV SCH (19:00)
[2018-05-15] MEDS ORDERED: ENALAPRILAT 1.25 MG/ML, 2ML IV PRN (19:00)
[2018-05-15] MEDS: ATORVASTATIN 40 MG TABLET PO SCH (22:43)
[2018-05-15] MEDS: CEFTRIAXONE 1,000 MG in SODIUM CHLORIDE 0.9% 50 ML IV SCH (22:43)
[2018-05-16 02:09] VITALS: BP 147/69
[2018-05-16 02:14] LABS: BASOPHILS # (AUTO) 0.05 x10^3/uL (0-0.1); BASOPHILS % (AUTO) 1 % (0-1); EOSINOPHILS # (AUTO) 0.27 x10^3/uL (0-0.4); EOSINOPHILS % (AUTO) 4 % (1-7); LYMPHOCYTES # (AUTO) 2.26 x10^3/uL (1-3.4); LYMPHOCYTES % (AUTO) 33 % (22-44); MD NO; MEAN CORPUSCULAR HEMOGLOBIN 29.7 pg (27.0-34.8); MEAN CORPUSCULAR HGB CONC 33.8 g/dL (32.4-35.8); MEAN CORPUSCULAR VOLUME 87.9 fL (80-100); MEAN PLATELET VOLUME 8.5 fL (7.4-10.4); MONOCYTES # (AUTO) 0.46 x10^3/uL (0.2-0.8); MONOCYTES % (AUTO) 7 % (2-9); NEUTROPHILS # (AUTO) 3.85 x10^3/uL (1.8-6.8); NEUTROPHILS % (AUTO) 56 % (42-75); PLATELET COUNT 185 x10^3/uL (130-400); RED BLOOD COUNT 3.06 x10^6/uL (3.82-5.3); RED CELL DISTRIBUTION WIDTH 17.5 % (9.6-15.2)
[2018-05-16 02:21] LABS: ANION GAP 7 mmol/L (5-15); CALCIUM 7.8 mg/dL (8.5-10.1); CHLORIDE 119 mmol/L (98-107); CREATININE 0.71 mg/dL (0.55-1.02)
[2018-05-16] MEDS: METOPROLOL TARTRATE 25 MG TABLET PO SCH ×2 (06:22→17:55)
[2018-05-16] MEDS: LOSARTAN 50MG TABLET PO SCH (09:38)
[2018-05-16] MEDS: PANTOPRAZOLE 40 MG IV IVPush SCH (09:38)
[2018-05-16 09:41] VITALS: BP 160/66
[2018-05-16 14:15] LABS: BASOPHILS # (AUTO) 0.03 x10^3/uL (0-0.1); BASOPHILS % (AUTO) 1 % (0-1); EOSINOPHILS # (AUTO) 0.31 x10^3/uL (0-0.4); EOSINOPHILS % (AUTO) 5 % (1-7); LYMPHOCYTES # (AUTO) 1.79 x10^3/uL (1-3.4); LYMPHOCYTES % (AUTO) 31 % (22-44); MD NO; MEAN CORPUSCULAR HEMOGLOBIN 29.4 pg (27.0-34.8); MEAN CORPUSCULAR HGB CONC 33.7 g/dL (32.4-35.8); MEAN CORPUSCULAR VOLUME 87.4 fL (80-100); MEAN PLATELET VOLUME 8.5 fL (7.4-10.4); MONOCYTES # (AUTO) 0.34 x10^3/uL (0.2-0.8); MONOCYTES % (AUTO) 6 % (2-9); NEUTROPHILS # (AUTO) 3.27 x10^3/uL (1.8-6.8); NEUTROPHILS % (AUTO) 57 % (42-75); PLATELET COUNT 197 x10^3/uL (130-400); RED BLOOD COUNT 3.26 x10^6/uL (3.82-5.3); RED CELL DISTRIBUTION WIDTH 17.6 % (9.6-15.2)
[2018-05-16 14:30] VITALS: BP 152/60
[2018-05-16 14:31] LABS: ALANINE AMINOTRANSFERASE 20 U/L (12-78); ALBUMIN 2.5 g/dL (3.4-5.0); ANION GAP 5 mmol/L (5-15); CHLORIDE 119 mmol/L (98-107); CREATININE 0.81 mg/dL (0.55-1.02)
[2018-05-16 14:34] LABS: ALKALINE PHOSPHATASE 42 U/L (45-117); BILIRUBIN,TOTAL 0.7 mg/dL (0.2-1.0); TOTAL PROTEIN 5.1 g/dL (6.4-8.2)
[2018-05-16 18:28] VITALS: BP 179/67
[2018-05-16] MEDS: ATORVASTATIN 40 MG TABLET PO SCH (20:25)
[2018-05-16] MEDS: CEFTRIAXONE 1,000 MG in SODIUM CHLORIDE 0.9% 50 ML IV SCH (22:42)
[2018-05-17 01:19] VITALS: BP 150/68
[2018-05-17] MEDS: METOPROLOL TARTRATE 25 MG TABLET PO SCH ×2 (05:43→17:06)
[2018-05-17 08:08] VITALS: BP 179/77
[2018-05-17] MEDS: PANTOPRAZOLE 40 MG IV IVPush SCH (08:13)
[2018-05-17] MEDS: LOSARTAN 50MG TABLET PO SCH (08:14)
[2018-05-17 15:54] VITALS: BP 191/65
[2018-05-17 17:05] VITALS: BP 165/72
[2018-05-17 20:16] VITALS: BP 178/69
[2018-05-17] MEDS: ATORVASTATIN 40 MG TABLET PO SCH (20:35)
[2018-05-17 22:50] VITALS: BP 128/57
[2018-05-17] MEDS: CEFTRIAXONE 1,000 MG in SODIUM CHLORIDE 0.9% 50 ML IV SCH (23:24)
[2018-05-18 03:07] VITALS: BP 131/69
[2018-05-18 05:17] LABS: ANION GAP 6 mmol/L (5-15); CALCIUM 8.3 mg/dL (8.5-10.1); CHLORIDE 117 mmol/L (98-107)
[2018-05-18 05:18] LABS: CREATININE 0.83 mg/dL (0.55-1.02)
[2018-05-18 05:36] VITALS: BP 167/73
[2018-05-18] MEDS: METOPROLOL TARTRATE 25 MG TABLET PO SCH (05:39)
[2018-05-18 05:45] LABS: BASOPHILS # (AUTO) 0.03 x10^3/uL (0-0.1); BASOPHILS % (AUTO) 1 % (0-1); EOSINOPHILS # (AUTO) 0.35 x10^3/uL (0-0.4); EOSINOPHILS % (AUTO) 6 % (1-7); LYMPHOCYTES # (AUTO) 1.68 x10^3/uL (1-3.4); LYMPHOCYTES % (AUTO) 28 % (22-44); MD NO; MEAN CORPUSCULAR HEMOGLOBIN 29.3 pg (27.0-34.8); MEAN CORPUSCULAR HGB CONC 33.5 g/dL (32.4-35.8); MEAN CORPUSCULAR VOLUME 87.6 fL (80-100); MEAN PLATELET VOLUME 8.7 fL (7.4-10.4); MONOCYTES # (AUTO) 0.38 x10^3/uL (0.2-0.8); MONOCYTES % (AUTO) 6 % (2-9); NEUTROPHILS # (AUTO) 3.63 x10^3/uL (1.8-6.8); NEUTROPHILS % (AUTO) 60 % (42-75); PLATELET COUNT 205 x10^3/uL (130-400); RED CELL DISTRIBUTION WIDTH 17.3 % (9.6-15.2)
[2018-05-18 06:34] VITALS: BP 160/65
[2018-05-18 08:15] VITALS: BP 150/68
[2018-05-18] MEDS: LOSARTAN 50MG TABLET PO SCH (08:17)
[2018-05-18] MEDS: PANTOPRAZOLE 40 MG IV IVPush SCH (08:17)
[2018-05-18 10:51] VITALS: BP 182/69
[2018-05-18] MEDS ORDERED: RANI300T3 PO (11:41)
[2018-05-18 12:14] VITALS: BP 143/66
[2018-05-19] MEDS ORDERED: CLOPIDOGREL 75 MG TABLET PO SCH (09:00)
== END 2018-05-18 14:00 | disposition home or self-care (01) | DRG 377 ==
LOC: ED 15:06 → EDIP 17:03 → 3NE 18:27
PROVIDERS: ADMIT Hospitalist; ATTEND Hospitalist
PROC: 30233N1 Transfusion of Nonautologous Red Blood Cells into Peripheral Vein, Percutaneous Approach (ICD-10-PCS; principal; 2018-05-15)
DX: K31.811 Angiodysplasia of stomach and duodenum with bleeding (principal); E43 Unspecified severe protein-calorie malnutrition; D62 Acute posthemorrhagic anemia; E87.0 Hyperosmolality and hypernatremia; N30.00 Acute cystitis without hematuria; E78.5 Hyperlipidemia, unspecified; F17.210 Nicotine dependence, cigarettes, uncomplicated; I11.0 Hypertensive heart disease with heart failure; I25.10 Atherosclerotic heart disease of native coronary artery without angina pectoris; I25.2 Old myocardial infarction; I35.0 Nonrheumatic aortic (valve) stenosis; I50.9 Heart failure, unspecified; Z79.02 Long term (current) use of antithrombotics/antiplatelets; Z82.49 Family history of ischemic heart disease and other diseases of the circulatory system; Z95.5 Presence of coronary angioplasty implant and graft; Z95.0 Presence of cardiac pacemaker; Z90.49 Acquired absence of other specified parts of digestive tract; Z80.9 Family history of malignant neoplasm, unspecified; Z86.010 Personal history of colon polyps
CPT/HCPCS: 36415; 36430; 74022; 80048; 80053; 81001; 83735; 84100; 85014; 85018; 85025; 85610; 85730; 86850; 86900; 86923; 87086; 93005; 99285; C9113; P9040